=== PATIENT | male | born 1960 | race Caucasian/White ===

== ENCOUNTER 2020-06-28 14:39 | Outpatient (CLI) | payer MEDICAID | END 2020-06-28 23:59 | disposition home or self-care (01) | LOC: RAD 14:39 → EDUNIT# 15:30 → RAD 23:59 | PROVIDERS: ATTEND Psychiatry & Neurology Vascular Neurology | DX: R13.12 Dysphagia, oropharyngeal phase (principal); I69.391 Dysphagia following cerebral infarction | CPT/HCPCS: 74230 ==